=== PATIENT | female | born 1940 | race Caucasian/White ===

== ENCOUNTER 2022-03-28 14:15 | Observation (INO) | payer MEDICARE, BC, SELFPAY ==
[2022-03-28 14:37] VITALS: O2SAT 97
[2022-03-28 15:00] VITALS: BP 132/76; PULSE 88; RESP 18; TEMP 36.3; O2SAT 96; O2SAT 97
[2022-03-28 15:29] VITALS: BP 135/72; PULSE 84; RESP 18; TEMP 36.8; O2SAT 97
--- NOTE | 2022-03-28 15:46 | PC.NURSE ---
Pt arrived via stretcher w/3 EMS staff members at 1415, hospital to hospital transfer. Initial assessment completed by myself. VS wnl. Pt eval by Dr. Altamirano. Pt placed on a regular diet. Report to Paty Zuluaga RN for evening shift.
[2022-03-28 18:41] LABS: HCO3 VBG 29 mmol/L (21-28); Lactate* 3.8 mmol/L (0.5-1.9); PCO2 VBG 45 mmHG (40-50); PO2 VBG 28.2 mmHG (25-47); pH VBG 7.414 (7.32-7.43)
[2022-03-28 18:43] LABS: Hematocrit 38.8 % (33.0-51.0); Hemoglobin* 12.7 gm/dL (12.0-16.0); Immature Granulocytes Abs Auto 0.01 K/uL (0.00-0.30); Lymphocytes Percent Auto 12.4 % (20-44); Mean Corpuscular HGB Conc 33 gm/dL (32-36); Mean Corpuscular Hemoglobin 29 pg (26-34); Mean Corpuscular Volume 89 fL (80-100); Monocytes Percent Auto 1.6 % (0.0-11.0); Neutrophils Percent Auto 85.8 % (42.0-72.0); Platelet Count* 186 K/uL (140-440); RDW Coefficient of Variation % 12.8 % (11.5-15.5); Red Blood Count 4.34 m/uL (4.00-5.20); White Blood Count* 5.07 K/uL (4.50-11.00)
[2022-03-28 18:44] LABS: Slide Review Reflex No
[2022-03-28 18:59] LABS: Chloride* 97 mmol/L (96-114); Potassium* 4.2 mmol/L (3.6-5.1); Sodium* 135 mmol/L (135-149)
[2022-03-28 19:00] VITALS: BP 127/66; PULSE 95; RESP 18; TEMP 37; O2SAT 93
[2022-03-28 19:02] LABS: Carbon Dioxide* 27 mmol/L (20-32); Creatinine* 0.8 mg/dL (0.5-1.5); Est. Creatinine Clearance* 44.51; Estimated Glomerular Filt Rate 74 ml/min
[2022-03-28 19:03] LABS: Blood Urea Nitrogen* 18 mg/dL (7-30); Calcium* 9.6 mg/dL (8.4-10.6); Glucose* 176 mg/dL (60-115)
[2022-03-28 19:12] LABS: NT Pro B Type NatriureticPept* 5480 PG/mL (0-450)
[2022-03-28 19:15] LABS: Troponin I* 0.03 ng/mL (0.01-0.04)
[2022-03-28 19:19] LABS: Procalcitonin* 0.07 ng/mL (<0.50)
--- NOTE | 2022-03-28 22:50 | PM.IMHP1 ---
Hospitalist- H&P: HPI History of Present Illness Date Seen: 04/06/22 Chief complaint: direct admit Narrative: Belinda Yost is a 82 year old female who presented as a direct admission from [place] ED for evaluation of SOB. The patient has been in cabin with family and became SOB yesterday. Today she had cough, sob and thus presented to outside ED. She status she was having URI symptoms/sinus symptoms about 1 week ago. no formal hx of COPD or asthma. In the ED the patient was originally hypoxic and noted to have oxygen saturation of 76%. Workup included: EKG showed sinus tachcyardia. Trop WNL. BNP 309 Influenza/Covid negative vBG pH 7.4, PCO2 42, Bicarb [address] PE Study negative for PE, bilateral groundglass opacities, Bronchiectasis CXR bilateral pleural effusions She was given ceftriaxone/azithromycin Duonebs 125 mg IV solumedrol 20 mg IV lasix. She currently denies sob, chest pain, cough at feels at baseline state. Review of Systems Status of ROS: Reports: 10 or more systems reviewed and unremarkable except as noted in History and below [facility] Medical History Acute respiratory failure with hypoxia Surgical History Status post appendectomy (09/12/09) Status post hysterectomy Status post lumbar laminectomy Status post tonsillectomy and adenoidectomy (09/12/09) Social History Smoking Status: Never smoker Meds Home Medications and Allergies Allergies Allergy/AdvReac Type Severity Reaction Status Date / Time No Known Drug Allergies Allergy Verified 04/04/22 12:51 Exam Narrative: Exam Narrative: Gen: No acute distress HEENT: NCAT EOMI MMM Neck: Supple CV: RRR s1 s2 LCTAB Abd: Soft, nt, nd Neuro AOX3 CN intact MSK: age appropriate muscle mass Ext: No peripheral edema Const: Vital Signs, click to edit/add: Vital Signs - 24 hr 03/28/22 14:37 03/28/22 15:29 03/28/22 15:29 Temperature 98.2 F Pulse Rate [Left A pical] 84 Respiratory Rate 18 Blood Pressure [Ri ght Arm] 135/72 Pulse Oximetry 97 97 97 Oxygen Delivery Me thod Room Air Room Air 03/28/22 15:00 03/28/22 15:00 03/28/22 15:00 Temperature 97.4 F L Pulse Rate [Left A pical] 88 88 Respiratory Rate 18 Blood Pressure [Ri ght Arm] 132/76 Pulse Oximetry 97 96 Oxygen Delivery Me thod Room Air Hospitalist - H&P: Result Labs Labs: Short CBC 03/28/22 Range/Units 18:35 WBC 5.07 (4.50-11.00) K/uL Hgb 12.7 (12.0-16.0) gm/dL Hct 38.8 (33.0-51.0) % Plt Count 186 (140-440) K/uL BMP 03/28/22 18:35 Sodium 135 Potassium 4.2 Chloride 97 Carbon Dioxide 27 BUN 18 Creatinine 0.8 Glucose 176 H Calcium 9.6 Cardiac Enzymes 03/28/22 Range/Units 18:35 Troponin I 0.03 (0.01-0.04) ng/mL Assessment and Plan Assessment and plan (1) Pneumonia: Status: Acute Plan Assessment: Belinda Yost is a 82 year old female who presented as a direct admission from [place] ED for evaluation of SOB. The patient has been in cabin with family and became SOB yesterday. Today she had cough, sob and thus presented to outside ED. no formal hx of COPD or asthma. In the ED the patient was originally hypoxic and noted to have oxygen saturation of 76%. Workup included: EKG showed sinus tachcyardia. Trop WNL. BNP 309 Influenza/Covid negative vBG pH 7.4, PCO2 42, Bicarb [address] PE Study negative for PE, bilateral groundglass opacities, Bronchiectasis CXR bilateral pleural effusions She was given ceftriaxone/azithromycin Duonebs 125 mg IV solumedrol 20 mg IV lasix. She currently denies sob, chest pain, cough at feels at baseline state. 1. Bronchiectasis; suspected PNA 2. Suspected mild CHF exacerbation; baseline EF unknown 3. Former smoker (quit when she was in her 20s) 4. Acute hypoxia; resolved; currently on room air and hemodynamically stable Plan -admit to obs -ceftriaxone and doxy -prn nebs -PO lasix tomorrow; appears euvolemic on exam -hold off on additional steroids -Echo -currently hemodynamically stable on room air -follow electrolytes -outpatient PFTs Code-Full DVT ppx-ambulate; low risk Dispo-home 1-2 days
[2022-03-28 22:51] LABS: Lactate* 1.5 mmol/L (0.5-1.9)
[2022-03-28 23:00] VITALS: RESP 14; O2SAT 93; O2SAT 98
[2022-03-29] VITALS (7 sets, daily range): BP systolic 124–152; BP diastolic 58–95; PULSE 81–102; RESP 18–22; TEMP 36.6–37.2; O2SAT 91–95
--- NOTE | 2022-03-29 07:12 | P.IMPN_ITS ---
Progress Note: A&P Assessment and plan (1) Acute respiratory failure with hypoxia: Problem details: Hypoxic on arrival to [place], [place] emergency room. CT Scan from outside hospital 03/28: Exam CT ANGIO CHEST CLINICAL HISTORY: hypoxia, diffuse wheezing, r/o PE; COMPARISON: None. TECHNIQUE: Contiguous images were obtained from the thoracic inlet to the upper abdomen following administration of 100 mL of Omnipaque 350, using the pulmonary embolism protocol. Arterial MIP images were obtained and evaluated. FINDINGS: The pulmonary arteries are well opacified with contrast without central pulmonary embolism. Scattered bilateral groundglass opacifications. The changes involving the bilateral lungs scattered areas of bronchiectasis are also noted. There is no pericardial or pleural effusion. The heart is normal in size. The aortic arch and great vessels are unremarkable. There is no mediastinal, hilar or axillary lymphadenopathy. The visualized bony structures are intact without lesion. Punctate calcifications associated with splenic parenchyma. Limited visu alization of the upper abdominal organs is within normal limits. IMPRESSION: 1. No pulmonary embolism. 2. Scattered bilateral groundglass opacifications. Cystic areas of pulmonary parenchymal change. Bronchiectasis is also noted. Groundglass opacifications are a nonspecific finding and encompasses a wide range of etiologies which includes infection, chronic interstitial disease and acute alveolar disease. Electronically Signed: Yung Hill MD 03/28/2022 6:39 AM Status: Acute Assessment and Plan: - Continue prn supplemental oxygen - source is likely multifactorial: Possible history of COPD, CHF, community- acquired pneumonia vs chronic interstitial lung disease - continue treatment with ceftriaxone and azithromycin, prednisone, CHF medications per below (2) Pneumonia: Status: Acute (3) Decreased cardiac ejection fraction: Problem details: TTE completed 03/29 Final Impressions: 1. Normal LV size, mildly increased wall thickness, moderately reduced global systolic function with an estimated EF of 35 - 40%. 2. Abnormal septal motion consistent with left bundle branch block. 3. Mildly enlarged left atrium. 4. There is moderate global left ventricular hypokinesis. 5. The mitral valve is normal, mild mitral regurgitation. Status: Acute Assessment and Plan: - patient amenable to medical treatment - will initiate low-dose Rodger inhibitor, beta-trung, Lasix. Will require close outpatient follow-up with PCP (Dr. Fermin) (4) Wheezing: Status: Acute Assessment and Plan: - had improved upon arrival to our hospital yesterday, returned today. Continue steroids as noted above Plan - per above - ambulation and SCDs for prophylaxis - patient updated at bedside, granddaughter Grace (RN) updated by phone Subjective Date Seen: 03/29/22 Interval history: No acute events overnight. Belinda does note return of wheezing and dry cough this morning. She has no chest pain or other concerns for me today. TTE completed 03/28 Final Impressions: 1. Normal LV size, mildly increased wall thickness, moderately reduced global systolic function with an estimated EF of 35 - 40%. 2. Abnormal septal motion consistent with left bundle branch block. 3. Mildly enlarged left atrium. 4. There is moderate global left ventricular hypokinesis. 5. The mitral valve is normal, mild mitral regurgitation. Exam Narrative: Exam Narrative: GEN: Alert and oriented, sitting comfortably in bed and speaking in full sentences, nontoxic in appearance HEENT: Normal external ears, EOMIs bilaterally, no scleral icterus CV: RRR, No concerning murmurs, rubs, or gallops R: Mild wheezing, apices > bases. Fine crackles bilateral bases, air movement adequate Ext: wwp, no concerning edema Skin: No concerning skin lesions or rashes on exposed skin Neuro: Nonfocal Psych: Appropriate Const: Vital Signs, click to edit/add: Vital Signs - 24 hr 03/28/22 14:37 03/28/22 15:29 03/28/22 15:29 Temperature 98.2 F Pulse Rate [Left A pical] 84 Respiratory Rate 18 Blood Pressure [Ri ght Arm] 135/72 Pulse Oximetry 97 97 97 Oxygen Delivery Nv thod Room Air Room Air 03/28/22 15:00 03/28/22 15:00 03/28/22 15:00 Temperature 97.4 F L Pulse Rate [Left A pical] 88 88 Respiratory Rate 18 Blood Pressure [Ri ght Arm] 132/76 Pulse Oximetry 97 96 Oxygen Delivery Nv thod Room Air 03/28/22 19:00 03/28/22 23:00 03/28/22 23:00 Temperature 98.6 F Pulse Rate [Left A pical] 95 Respiratory Rate 18 14 Blood Pressure [Ri ght Arm] 127/66 Pulse Oximetry 93 93 98 [facility] 03/29/22 03:00 Temperature 99 F Pulse Rate [Left A pical] 102 H Respiratory Rate 22 Blood Pressure [Ri ght Arm] 132/75 Pulse Oximetry 93 Oxygen Delivery Me thod Room Air Labs Labs: Laboratory Results - last 24 hr 03/28/22 03/28/22 03/28/22 18:35 18:35 18:35 WBC 5.07 RBC 4.34 Hgb 12.7 Hct 38.8 MCV 89 MCH 29 MCHC 33 RDW Coeff of Davy 12.8 Plt Count 186 Neut % (Auto) 85.8 H Lymph % (Auto) 12.4 L [place] % (Auto) 1.6 Eos % (Auto) 0.0 Baso % (Auto) 0.0 Neut # (Auto) 4.40 Lymph # (Auto) 0.60 L [place] # (Auto) 0.10 Eos # (Auto) 0.00 Baso # (Auto) 0.00 Abs Immat Gran (auto) 0.01 VBG pH 7.414 VBG pCO2 45 VBG pO2 28.2 VBG HCO3 29 H Sodium 135 Potassium 4.2 Chloride 97 Carbon Dioxide 27 BUN 18 Creatinine 0.8 Estimated Creat Clear 44.51 Estimated GFR 74 Glucose 176 H Lactate 3.8 H Calcium 9.6 Troponin I 0.03 NT-Pro-B Natriuret Pep 5480 H Procalcitonin 0.07 03/28/22 22:48 WBC RBC Hgb Hct MCV MCH MCHC RDW Coeff of Davy Plt Count Neut % (Auto) Lymph % (Auto) [place] % (Auto) Eos % (Auto) Baso % (Auto) Neut # (Auto) Lymph # (Auto) [place] # (Auto) Eos # (Auto) Baso # (Auto) Abs Immat Gran (auto) VBG pH VBG pCO2 VBG pO2 VBG HCO3 Sodium Potassium Chloride Carbon Dioxide BUN Creatinine Estimated Creat Clear Estimated GFR Glucose Lactate 1.5 Calcium Troponin I NT-Pro-B Natriuret Pep Procalcitonin
[2022-03-29 07:21] LABS: Basophils Absolute Auto 0.01 K/uL (0.00-0.30); Basophils Percent Auto 0.1 % (0.0-3.0); Eosinophils Absolute Auto 0.02 K/uL (0.00-0.50); Eosinophils Percent Auto 0.3 % (0.0-7.0); Hematocrit 35.2 % (33.0-51.0); Hemoglobin* 11.6 gm/dL (12.0-16.0); Immature Granulocytes Abs Auto 0.01 K/uL (0.00-0.30); Mean Corpuscular HGB Conc 33 gm/dL (32-36); Mean Corpuscular Hemoglobin 29 pg (26-34); Mean Corpuscular Volume 88 fL (80-100); Monocytes Percent Auto 6.6 % (0.0-11.0); Neutrophils Percent Auto 73.9 % (42.0-72.0); Platelet Count* 171 K/uL (140-440); RDW Coefficient of Variation % 12.8 % (11.5-15.5); Red Blood Count 3.98 m/uL (4.00-5.20); White Blood Count* 7.86 K/uL (4.50-11.00)
[2022-03-29 07:30] LABS: Chloride* 98 mmol/L (96-114); Potassium* 3.9 mmol/L (3.6-5.1); Sodium* 133 mmol/L (135-149)
[2022-03-29 07:32] LABS: Slide Review Reflex No
[2022-03-29 07:33] LABS: Blood Urea Nitrogen* 18 mg/dL (7-30); Carbon Dioxide* 27 mmol/L (20-32); Creatinine* 0.7 mg/dL (0.5-1.5); Est. Creatinine Clearance* 44.51; Estimated Glomerular Filt Rate 87 ml/min
[2022-03-29 07:34] LABS: Glucose* 97 mg/dL (60-115); Magnesium* 1.8 mg/dL (1.5-2.6)
--- NOTE | 2022-03-29 07:49 | PC.NURSE ---
Pt pleasant and cooperative, VSS. LSCTA. Pt declines any pain. Up I in room.
[2022-03-29] MEDS: cefTRIAXone 1 GM in 0.9 % SODIUM CHLORIDE Mini-bag 100 ML IVPB (08:18)
[2022-03-29] MEDS: FUROSEMIDE 40 MG TABLET 20 MG PO (08:20)
[2022-03-29] MEDS: DOXYCYCLINE HYCLATE 100 MG CAPSULE PO ×2 (08:20→21:04)
[2022-03-29] MEDS: 0.9 % SODIUM CHLORIDE 250 ml IV (08:48)
[2022-03-29] MEDS: METOPROLOL SUCCINATE (XL) 25 MG TAB PO (08:52)
[2022-03-29] MEDS: lisinopriL 5 MG TABLET 2.5 MG PO (08:52)
[2022-03-29] MEDS: ACETAMINOPHEN 500 MG TABLET PO ×2 (08:52→18:37)
[2022-03-29] MEDS: predniSONE 20 MG TABLET 60 MG PO (08:52)
[2022-03-29 09:16] LABS: Appearance Urine Clear (Clear); Bilirubin Urine Negative (Negative); Blood Urine Negative (Negative); Color Urine Yellow (Yellow); Glucose Urine Negative (Negative); Ketones Urine Negative (Negative); Leukocyte Esterase Urine Negative (Negative); Nitrite Urine Negative (Negative); Protein Urine Negative (Negative); Specific Gravity Urine 1.015 (1.000-1.030); Urobilinogen Urine 0.2 (0.2-1.0)
[2022-03-29 17:44] LABS: NT Pro B Type NatriureticPept* 3420 PG/mL (0-450)
[2022-03-30 03:00] VITALS: BP 140/92; PULSE 81; RESP 18; TEMP 36.6; O2SAT 94
[2022-03-30] MEDS: guaiFENesin 100 MG/ML CUP PO (03:17)
--- NOTE | 2022-03-30 06:04 | PC.NURSE ---
Pt pleasant and cooperative. VSS this shift. O2 sats dropped when pt fell asleep. O2 started @ .5L to maintain her sats above 88-90. After 20min O2 increased to 1.5L to maintain sats above 88. Pt up I . Started with a cough this am. Lung sound with expiratory wheezes which were not there at the started of my shift. guaifenesin 200mg Liquid given. Pt resting at this time with head of bed elevated.
[2022-03-30 07:00] VITALS: BP 157/97; PULSE 69; PULSE 94; RESP 18; TEMP 36.6; O2SAT 94
[2022-03-30 07:14] LABS: Basophils Percent Auto 0.1 % (0.0-3.0); Eosinophils Percent Auto 0.2 % (0.0-7.0); Hematocrit 38.6 % (33.0-51.0); Hemoglobin* 12.8 gm/dL (12.0-16.0); Immature Granulocytes Abs Auto 0.08 K/uL (0.00-0.30); Lymphocytes Percent Auto 14.6 % (20-44); Mean Corpuscular HGB Conc 33 gm/dL (32-36); Mean Corpuscular Hemoglobin 29 pg (26-34); Mean Corpuscular Volume 89 fL (80-100); Neutrophils Percent Auto 78.5 % (42.0-72.0); Platelet Count* 184 K/uL (140-440); RDW Coefficient of Variation % 12.8 % (11.5-15.5); Red Blood Count 4.36 m/uL (4.00-5.20); White Blood Count* 12.43 K/uL (4.50-11.00)
[2022-03-30 07:16] LABS: Slide Review Reflex No
[2022-03-30 07:33] LABS: Chloride* 98 mmol/L (96-114); Sodium* 132 mmol/L (135-149)
[2022-03-30 07:34] LABS: Potassium* 3.4 mmol/L (3.6-5.1)
[2022-03-30 07:36] LABS: Blood Urea Nitrogen* 18 mg/dL (7-30); Carbon Dioxide* 26 mmol/L (20-32); Creatinine* 0.6 mg/dL (0.5-1.5); Est. Creatinine Clearance* 44.51; Estimated Glomerular Filt Rate 90 ml/min
[2022-03-30 07:37] LABS: Calcium* 8.9 mg/dL (8.4-10.6); Glucose* 98 mg/dL (60-115)
[2022-03-30] MEDS: predniSONE 20 MG TABLET 60 MG PO (08:42)
[2022-03-30] MEDS: DOXYCYCLINE HYCLATE 100 MG CAPSULE PO ×2 (08:44→20:13)
[2022-03-30] MEDS: lisinopriL 5 MG TABLET 2.5 MG PO (08:44)
[2022-03-30] MEDS: METOPROLOL SUCCINATE (XL) 25 MG TAB PO (08:45)
[2022-03-30] MEDS: FUROSEMIDE 40 MG TABLET 20 MG PO (08:45)
[2022-03-30] MEDS: cefTRIAXone 1 GM in 0.9 % SODIUM CHLORIDE Mini-bag 100 ML IVPB (08:48)
[2022-03-30] MEDS: 0.9 % SODIUM CHLORIDE 250 ml IV (08:50)
[2022-03-30] MEDS: IPRAT-ALBUT 0.5-2.5 MG/3 ML NEB 1 NEB IH ×4 (10:20→20:13)
[2022-03-30 11:00] VITALS: BP 124/91; PULSE 77; RESP 18; TEMP 36.1; O2SAT 97
[2022-03-30 15:00] VITALS: BP 125/65; PULSE 77; PULSE 88; RESP 18; TEMP 36.1; O2SAT 94; O2SAT 96
--- NOTE | 2022-03-30 16:08 | P.IMPN_ITS ---
Progress Note: A&P Assessment and plan (1) Acute respiratory failure with hypoxia: Problem details: Hypoxic on arrival to [place], [place] emergency room. CT Scan from outside hospital 03/28: Exam CT ANGIO CHEST CLINICAL HISTORY: hypoxia, diffuse wheezing, r/o PE; COMPARISON: None. TECHNIQUE: Contiguous images were obtained from the thoracic inlet to the upper abdomen following administration of 100 mL of Omnipaque 350, using the pulmonary embolism protocol. Arterial MIP images were obtained and evaluated. FINDINGS: The pulmonary arteries are well opacified with contrast without central pulmonary embolism. Scattered bilateral groundglass opacifications. The changes involving the bilateral lungs scattered areas of bronchiectasis are also noted. There is no pericardial or pleural effusion. The heart is normal in size. The aortic arch and great vessels are unremarkable. There is no mediastinal, hilar or axillary lymphadenopathy. The visualized bony structures are intact without lesion. Punctate calcifications associated with splenic parenchyma. Limited visu alization of the upper abdominal organs is within normal limits. IMPRESSION: 1. No pulmonary embolism. 2. Scattered bilateral groundglass opacifications. Cystic areas of pulmonary parenchymal change. Bronchiectasis is also noted. Groundglass opacifications are a nonspecific finding and encompasses a wide range of etiologies which includes infection, chronic interstitial disease and acute alveolar disease. Electronically Signed: Yung Hill MD 03/28/2022 6:39 AM Status: Acute (2) Pneumonia: Status: Acute (3) Decreased cardiac ejection fraction: Problem details: TTE completed 03/29 Final Impressions: 1. Normal LV size, mildly increased wall thickness, moderately reduced global systolic function with an estimated EF of 35 - 40%. 2. Abnormal septal motion consistent with left bundle branch block. 3. Mildly enlarged left atrium. 4. There is moderate global left ventricular hypokinesis. 5. The mitral valve is normal, mild mitral regurgitation. 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 Reviewed impression with patient. 2. Answered patient's questions are satisfaction. 3. Continue with diuresis efforts initiated yesterday. 4. Potassium supplementation and follow potassium levels. 5. Fluid restriction and follow sodium levels. 6. Add bronchodilator with scheduled DuoNeb and as needed albuterol. 7. Decrease dose of steroid to 30 mg daily. 8. I called and spoke with her granddaughter, Grace Lagunas, at [phone], per patient request. 9. Respiratory therapy will instructed patient on how to appropriately use the Aerobika device. 10. In outpatient setting long-acting beta agonist and steroid combination medication will need to be instituted. 11. Patient and granddaughter are agreeable to above stated plans and recommendations. Subjective Time Seen by Provider: 08:30 Date Seen: 03/30/22 Interval history: Hospital day 3. She did relatively well during the day yesterday. In the evening when she tried to lay down she started having coughing paroxysms once again. Was eventually able to sleep with head of bed elevated. She indicates that at home she is normally able to sleep flat. Denies paroxysmal nocturnal dyspnea per se. Denies orthopnea per se. With a coughing paroxysm she states that it is hard for her to catch her breath. Denies dyspnea on exertion. Denies dyspnea at rest. Denies chest heaviness, pressure, tightness, or pain. Denies syncope or near-syncope. Tolerating oral intake. Tolerating activities such as walking about room and in the hallways of the hospital. Generally speaking she feels improved this morning compared to yesterday in the evening. TTE completed 03/28 Final Impressions: 1. Normal LV size, mildly increased wall thickness, moderately reduced global systolic function with an estimated EF of 35 - 40%. 2. Abnormal septal motion consistent with left bundle branch block. 3. Mildly enlarged left atrium. 4. There is moderate global left ventricular hypokinesis. 5. The mitral valve is normal, mild mitral regurgitation. Exam Narrative: Exam Narrative: Appears comfortable when I see her. No acute distress. Alert, oriented to self, place, time, situation. Articulate, cooperative, friendly. Mood and affect are congruent. While sitting upright she does not have JVD or hepatojugular reflux. No carotid bruits. Lungs with scattered rhonchi without rales or wheezing. Heart tones with regular rhythm, normal S1-S2, without murmur, gallop, or rub. Abdomen with active bowel sounds, soft, nontender. Extremities without edema. Independent transfer, station, and gait. No focal motor neurologic deficits. Const: Vital Signs, click to edit/add: Vital Signs - 24 hr 03/29/22 19:00 03/29/22 23:00 03/29/22 23:00 Temperature 97.8 F Pulse Rate [Left A pical] 81 87 Respiratory Rate 20 18 Blood Pressure [Ri ght Arm] 148/95 H 152/93 H Pulse Oximetry 95 91 91 Oxygen Delivery Me thod Room Air Room Air Oxygen Flow Rate 0 03/30/22 03:00 03/30/22 07:00 03/30/22 07:00 Temperature 97.8 F Pulse Rate [Left A pical] 81 69 Respiratory Rate 18 18 Blood Pressure [Ri ght Arm] 140/92 H Pulse Oximetry 94 94 Oxygen Delivery Me thod Nasal Cannula Oxygen Flow Rate 1.5 03/30/22 07:00 03/30/22 11:00 03/30/22 15:00 Temperature 97.9 F 97.0 F L Pulse Rate [Left A pical] 94 77 Respiratory Rate 18 18 Blood Pressure [Ri ght Arm] 157/97 H 124/91 H Pulse Oximetry 94 97 94 Oxygen Delivery Me thod Room Air Room Air Oxygen Flow Rate 03/30/22 15:00 03/30/22 15:00 Temperature 97.0 F L Pulse Rate [Left A pical] 77 88 Respiratory Rate 18 18 Blood Pressure [Ri ght Arm] 125/65 Pulse Oximetry 96 Oxygen Delivery Me thod Room Air Oxygen Flow Rate Documenting provider has reviewed patient's vital signs: yes Labs Labs: Laboratory Results - last 24 hr 03/29/22 03/30/22 03/30/22 06:31 06:34 06:34 WBC 12.43 H RBC 4.36 Hgb 12.8 Hct 38.6 MCV 89 MCH 29 MCHC 33 RDW Coeff of Davy 12.8 Plt Count 184 Neut % (Auto) 78.5 H Lymph % (Auto) 14.6 L [place] % (Auto) 6.0 Eos % (Auto) 0.2 Baso % (Auto) 0.1 Neut # (Auto) 9.80 H Lymph # (Auto) 1.80 [place] # (Auto) 0.70 Eos # (Auto) 0.00 Baso # (Auto) 0.00 Abs Immat Gran (auto) 0.08 Sodium 132 L Potassium 3.4 L Chloride 98 Carbon Dioxide 26 BUN 18 Creatinine 0.6 Estimated Creat Clear 44.51 Estimated GFR 90 Glucose 98 Calcium 8.9 NT-Pro-B Natriuret Pep 3420 H
[2022-03-30] MEDS: POTASSIUM BICARB 25 MEQ EFFERVESCENT TAB PO ×2 (16:35→18:24)
--- NOTE | 2022-03-30 18:51 | PC.NURSE ---
Pt. alert and orientedx4. Pt. pleasant and cooperative. VSS this shift. Pt. on RA and maintains 94-96% O2. Pt. has non productive cough this am. Lung sound with expiratory wheezes this AM and improved w/scheduled Duo Neb. Pt. got an Aerobika from [facility] and encouraged to use. Pt. tolerated aerobika and duoneb administration. Lung sounds are better this afternoon and pt. is not coughing as much. Pt's family at bedside for most of the day visiting, and Nurse updated family on pt's. current situation so they had a better understanding.
[2022-03-30 19:00] VITALS: BP 119/84; PULSE 85; RESP 18; TEMP 36.5; O2SAT 97
[2022-03-30 22:59] VITALS: BP 141/86; PULSE 80; RESP 18; TEMP 36.8; O2SAT 95
[2022-03-31 03:00] VITALS: PULSE 79; RESP 16; O2SAT 94
--- NOTE | 2022-03-31 05:05 | PC.NURSE ---
PATIENT UP IND IN ROOM, DECLINING PAIN, ON RA THROUGHOUT NIGHT WITH SATS 90% AND GREATER, USING AROBKA INDEPENDTLY.
[2022-03-31 07:00] VITALS: BP 148/81; PULSE 78; RESP 18; TEMP 36.4; O2SAT 98
[2022-03-31 07:16] LABS: Potassium* 4.1 mmol/L (3.6-5.1); Sodium* 133 mmol/L (135-149)
[2022-03-31 07:28] LABS: NT Pro B Type NatriureticPept* 5030 PG/mL (0-450)
[2022-03-31] MEDS: FUROSEMIDE 40 MG TABLET 20 MG PO (09:07)
[2022-03-31] MEDS: DOXYCYCLINE HYCLATE 100 MG CAPSULE PO ×2 (09:08→20:40)
[2022-03-31] MEDS: lisinopriL 5 MG TABLET 2.5 MG PO (09:08)
[2022-03-31] MEDS: METOPROLOL SUCCINATE (XL) 25 MG TAB PO (09:08)
[2022-03-31] MEDS: predniSONE 20 MG TABLET 30 MG PO (09:09)
[2022-03-31] MEDS: cefTRIAXone 1 GM in 0.9 % SODIUM CHLORIDE Mini-bag 100 ML IVPB (09:10)
[2022-03-31] MEDS: 0.9 % SODIUM CHLORIDE 250 ml IV (09:10)
[2022-03-31] MEDS: IPRAT-ALBUT 0.5-2.5 MG/3 ML NEB 1 NEB IH ×4 (10:00→22:06)
[2022-03-31] MEDS: SODIUM CHLORIDE 0.9 % (FLUSH) 10 ML SYRINGE 5 ML IVF (10:01)
[2022-03-31 11:00] VITALS: BP 114/81; PULSE 77; RESP 18; TEMP 36.5; O2SAT 97
--- NOTE | 2022-03-31 15:25 | P.IMPN_ITS ---
Progress Note: A&P Assessment and plan (1) Acute respiratory failure with hypoxia: Problem details: Hypoxic on arrival to [place], [place] emergency room. CT Scan from outside hospital 03/28: Exam CT ANGIO CHEST CLINICAL HISTORY: hypoxia, diffuse wheezing, r/o PE; COMPARISON: None. TECHNIQUE: Contiguous images were obtained from the thoracic inlet to the upper abdomen following administration of 100 mL of Omnipaque 350, using the pulmonary embolism protocol. Arterial MIP images were obtained and evaluated. FINDINGS: The pulmonary arteries are well opacified with contrast without central pulmonary embolism. Scattered bilateral groundglass opacifications. The changes involving the bilateral lungs scattered areas of bronchiectasis are also noted. There is no pericardial or pleural effusion. The heart is normal in size. The aortic arch and great vessels are unremarkable. There is no mediastinal, hilar or axillary lymphadenopathy. The visualized bony structures are intact without lesion. Punctate calcifications associated with splenic parenchyma. Limited visu alization of the upper abdominal organs is within normal limits. IMPRESSION: 1. No pulmonary embolism. 2. Scattered bilateral groundglass opacifications. Cystic areas of pulmonary parenchymal change. Bronchiectasis is also noted. Groundglass opacifications are a nonspecific finding and encompasses a wide range of etiologies which includes infection, chronic interstitial disease and acute alveolar disease. Electronically Signed: Yung Hill MD 03/28/2022 6:39 AM Status: Acute Assessment and Plan: 1. On room air with oxygen saturations much improved. 2. Will stop continuous oxygen saturation monitoring. (2) Pneumonia: Status: Acute Assessment and Plan: 1. Still on ceftriaxone and doxycycline. 2. Will switch to all oral antibiotics tomorrow if still doing well. (3) Decreased cardiac ejection fraction: Problem details: TTE completed 03/29 Final Impressions: 1. Normal LV size, mildly increased wall thickness, moderately reduced global systolic function with an estimated EF of 35 - 40%. 2. Abnormal septal motion consistent with left bundle branch block. 3. Mildly enlarged left atrium. 4. There is moderate global left ventricular hypokinesis. 5. The mitral valve is normal, mild mitral regurgitation. Status: Acute Assessment and Plan: 1. Continue with current regimen as presently instituted including diuresis with furosemide. (4) Wheezing: Status: Acute Assessment and Plan: 1. Much improved on bronchodilator therapy. 2. Will need bronchodilator therapy at time of discharge. (5) Chronic obstructive pulmonary disease: Status: Acute (6) Emphysema lung: Status: Acute (7) Bronchiectasis with acute exacerbation: Problem details: Benefitting from use of the oscillating device, Aerobika. 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 Continue with low-dose beta trung, STEFANY-inhibitor, and diuresis. Plan 1. Reviewed my impression with patient. 2. Answered patient's questions are satisfaction. 3. If patient does well overnight then consider discharge tomorrow. 4. Patient agreeable with above stated plans and recommendations. Time Spent With Patient Total time spent: 30 minutes Subjective Time Seen by Provider: 11:00 Date Seen: 03/31/22 Interval history: Hospital day 4. She felt better yesterday after starting the nebulized bronchodilator therapy. Slept well throughout the night. Awakened this morning with what she described as a noise in her chest and a cough. After she sat up cleared her throat it seemed to improve. Denies paroxysmal nocturnal dyspnea per se. Denies orthopnea per se. Substantially decreased the coughing paroxysms she was experiencing previously. Denies dyspnea on exertion. Denies dyspnea at rest. Denies chest heaviness, pressure, tightness, or pain. Denies syncope or near- syncope. Tolerating oral intake. Tolerating activities such as walking about room and in the hallways of the hospital. TTE completed 03/28 Final Impressions: 1. Normal LV size, mildly increased wall thickness, moderately reduced global systolic function with an estimated EF of 35 - 40%. 2. Abnormal septal motion consistent with left bundle branch block. 3. Mildly enlarged left atrium. 4. There is moderate global left ventricular hypokinesis. 5. The mitral valve is normal, mild mitral regurgitation. Exam Narrative: Exam Narrative: Weight this morning is 67.6 kg. Admission weight was 68.6 kg. No acute distress. Appears comfortable. Alert, oriented to self, place, time, situation. Friendly, cooperative, articulate. Mood and affect are congruent. Sitting upright she does not have JVD or hepatojugular reflux. No carotid bruits. Lungs are for the most part clear to auscultation. Rare intermittent scattered rhonchi. No wheezing or rales. Chest wall excursions are full. Heart tones with regular rhythm, normal S1-S2. Abdomen with active bowel sounds, soft, nontender. Extremities with no edema today. Skin is warm, dry, intact. No petechiae, rashes, jaundice, or cyanosis. No focal motor neurologic deficits. Independent transfer, station, and gait. Const: Vital Signs, click to edit/add: Vital Signs - 24 hr 03/30/22 19:00 03/30/22 22:59 03/30/22 22:59 Temperature 97.7 F Pulse Rate [Left A pical] 85 Respiratory Rate 18 18 Blood Pressure [Ri ght Arm] 119/84 Pulse Oximetry 97 95 Oxygen Delivery Me thod Room Air 03/30/22 22:59 03/31/22 03:00 03/31/22 07:00 Temperature 98.3 F Pulse Rate [Left A pical] 80 79 Respiratory Rate 18 16 Blood Pressure [Ri ght Arm] 141/86 H Pulse Oximetry 95 94 98 Oxygen Delivery Me thod Room Air Room Air 03/31/22 07:00 03/31/22 11:00 Temperature 97.5 F L 97.7 F Pulse Rate [Left A pical] 78 77 Respiratory Rate 18 18 Blood Pressure [Ri ght Arm] 148/81 H 114/81 Pulse Oximetry 98 97 Oxygen Delivery Me thod Room Air Room Air Documenting provider has reviewed patient's vital signs: yes Labs Labs: Laboratory Results - last 24 hr 03/31/22 06:27 Sodium 133 L Potassium 4.1 NT-Pro-B Natriuret Pep 5030 H
[2022-03-31 16:00] VITALS: BP 118/61; PULSE 80; RESP 18; TEMP 36.7; O2SAT 94
--- NOTE | 2022-03-31 16:21 | PC.NURSE ---
Pt up independent in room. RA sats holding in mid 90's. Denies chest pain, SOB, nausea. Many questions from pt and daughter answered throughout the shift.
[2022-03-31 19:00] VITALS: BP 123/72; PULSE 85; RESP 18; TEMP 36.6; O2SAT 98
--- NOTE | 2022-03-31 21:16 | PC.NURSE ---
Shift note : The pt has been pleasant and cooperative. She was ambulating in the haile independently; denied any short of breath and chest pain. The pt reported less cough this shift with some sputum; she doesn't know the color of the sputum; she has been swallowing it. Spo2 has been in the 90s in RA. The pt appeared without any distress throughout the shift.
[2022-03-31 23:00] VITALS: BP 142/89; PULSE 78; RESP 18; TEMP 36.6; O2SAT 98
[2022-04-01 04:00] VITALS: PULSE 66; RESP 18; O2SAT 98
--- NOTE | 2022-04-01 06:22 | PC.NURSE ---
SHift note: No c/o SOB overnight, voiding large amounts of urine, lungs mostly clear
[2022-04-01 07:00] VITALS: BP 142/87; PULSE 74; RESP 16; RESP 18; TEMP 36.5; O2SAT 98
[2022-04-01 07:40] LABS: Hemoglobin* 13.2 gm/dL (12.0-16.0); Mean Corpuscular HGB Conc 33 gm/dL (32-36); Mean Corpuscular Hemoglobin 29 pg (26-34); Mean Corpuscular Volume 88 fL (80-100); Platelet Count* 190 K/uL (140-440); Red Blood Count 4.54 m/uL (4.00-5.20); White Blood Count* 6.88 K/uL (4.50-11.00)
[2022-04-01 07:57] LABS: Potassium* 3.7 mmol/L (3.6-5.1); Sodium* 133 mmol/L (135-149)
[2022-04-01 08:00] LABS: Magnesium* 1.9 mg/dL (1.5-2.6)
[2022-04-01 08:13] LABS: Slide Review Reflex No
[2022-04-01] MEDS: IPRAT-ALBUT 0.5-2.5 MG/3 ML NEB 1 NEB IH (08:29)
[2022-04-01] MEDS: predniSONE 20 MG TABLET 30 MG PO (08:32)
[2022-04-01] MEDS: METOPROLOL SUCCINATE (XL) 25 MG TAB PO (08:32)
[2022-04-01] MEDS: lisinopriL 5 MG TABLET 2.5 MG PO (08:32)
[2022-04-01] MEDS: POTASSIUM CHLORIDE 10 MEQ CAPSULE ER 20 MEQ PO (08:32)
[2022-04-01] MEDS: DOXYCYCLINE HYCLATE 100 MG CAPSULE PO (08:32)
[2022-04-01] MEDS: cefTRIAXone 1 GM in 0.9 % SODIUM CHLORIDE Mini-bag 100 ML IVPB (08:33)
[2022-04-01] MEDS: SODIUM CHLORIDE 0.9 % (FLUSH) 10 ML SYRINGE 5 ML IVF (08:33)
[2022-04-01] MEDS: FUROSEMIDE 40 MG TABLET 20 MG PO (08:33)
--- NOTE | 2022-04-01 12:59 | PC.NURSE ---
PATIENT DISCHARGED TO HOME ACCOMPANIED BY DAUGHTER, PATIENT AND DAUGHTER VERBALIZED UNDERSTANDING OF DISCHARGE INFORMATION, EDUCATED PATIENT ON NEW CHF INCLUDING BUT NOT LIMITED TO DIET, WEIGHT MEASUREMENTS, MEDICATIONS, ACTIVITY AND FOLLOW UP. PATIENT AND DTR VERBALIZED UNDERSTANDING OF DISCHARGE INFORMATION, ALSO SPOKE WITH PATIENT REGARDING COPD/EMPHYSEMA, IV REMOVED, ALL BELONGINGS SENT WITH PATIENT, PATIENT LEFT AROUND 1210, UP INDEPENDENT IN ROOM, TOLERATING REG DIET, DECLINING PAIN.
--- NOTE | 2022-04-07 12:05 | P.DS_ITS ---
DS: Providers Provider Time Seen by Provider: 08:00 Date Seen: 04/01/22 Date of admission: 03/28/22 14:15 Primary care physician: Fredi Fermin MD Admitting Clinician: Pinky Beltran MD Consults: 03/29/22 08:39 Consult to Respiratory Therapy [CONS] Routine Comment: Reason(s) for RT Consult:: Consult 03/30/22 09:12 Consult to Respiratory Therapy [CONS] Routine Comment: Reason(s) for RT Consult:: Consult New COPD/Asthma Diag Comment: bronciectasis, teach use of Aerobika device with/without neb Attending Physician on discharge: Antonio Brandon MD Date of Discharge: 04/01/22 DS: Diagnosis Discharge Diagnosis (1) Pneumonia: Status: Acute (2) Bronchiectasis with acute exacerbation: Status: Acute Problem details: Benefitting from use of the oscillating device, Aerobika. 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 Normal LV size, mildly increased wall thickness, moderately reduced global systolic function with an estimated EF of 35 - 40%. 2. Abnormal septal motion consistent with left bundle branch block. 3. Mildly enlarged left atrium. 4. There is moderate global left ventricular hypokinesis. 5. The mitral valve is normal, mild mitral regurgitation. (7) Peripheral vascular disease: Status: Acute (8) Hyperlipidemia: Status: Acute DS: Summary Hospital Course Hospital Course: Belinda Yost is a 82 year old female who presented as a direct admission from [place] ED for evaluation of SOB. The patient has been in cabin with family and became SOB yesterday. Today she had cough, sob and thus presented to outside ED. She status she was having URI symptoms/sinus symptoms about 1 week ago. no formal hx of COPD or asthma. In the ED the patient was originally hypoxic and noted to have oxygen saturation of 76%. Workup included: EKG showed sinus tachcyardia. Trop WNL. BNP 309 Influenza/Covid negative vBG pH 7.4, PCO2 42, Bicarb [address] PE Study negative for PE, bilateral groundglass opacities, Bronchiectasis CXR bilateral pleural effusions She was given ceftriaxone/azithromycin Duonebs 125 mg IV solumedrol 20 mg IV lasix. She currently denies sob, chest pain, cough at feels at baseline state. Patient also found to be in heart failure. Treated with diuretics and at excellent response. Weight improved from 69 kilos down to 67.4 kilos. Echocardiogram demonstrates moderate decrease in global systolic function with EF of 35-40%. Eventually able to transition to home going medication regimen which she tolerated well. Follow-up as indicated. Status at Discharge Overall status at discharge: patient is progressing back to baseline Time Spent with Patient Time attestation: Total time spent providing and/or coordinating discharge services: Time spent: Greater than 30 minutes Exam Narrative: Exam Narrative: TTE completed 03/28 Final Impressions: ?1. Normal LV size, mildly increased wall thickness, moderately reduced global systolic function with an estimated EF of 35 - 40%. ?2. Abnormal septal motion consistent with left bundle branch block. ?3. Mildly enlarged left atrium. ?4. There is moderate global left ventricular hypokinesis. ?5. The mitral valve is normal, mild mitral regurgitation. Exam Narrative:?? Exam Narrative: We ight this morning is 67.4 kg.? Admis marlen weight was 68 .6 kg. No acute di stress.? Appears c omfortable.? Alert , oriented to self , place, time, sit uation.? Friendly, cooperative, amadeo culate.? Mood and affect are congrue nt. Sitting uprigh t she does not hav e JVD or hepatojug ular reflux.? No c arotid bruits. Juliette gs are for the mos t part clear to au scultation.? Rare intermittent scatt ered rhonchi.? No wheezing or rales. ? Chest wall excur sions are full. He art tones with reg ular rhythm, juan manuel l S1-S2. Abdomen w ith active bowel s ounds, soft, nonte nder.? Extremities with no edema tod ay.? Skin is warm, dry, intact.? No petechiae, rashes, jaundice, or cyan osis. No focal mot or neurologic defi cits. Independent transfer, station, and gait. Const: Documenting provider has reviewed patient's vital signs: yes Discharge Plan Discharge Disposition: Home, Self-Care Date of Admission: 03/28/22 14:15 Primary Care Provider: Fredi Fermin Condition: Improved Anticipated Discharge Date/Time: 04/01/22 11:30 Discharge Medications: New furosemide 40 mg Tablet 20 mg PO DAILY 30 Days Qty: 60 0RF albuterol sulfate 2.5 mg /3 mL (0.083 %) Solution For Nebulization 2.5 mg NEB Q4H PRN30 Days Qty: 75 0RF lisinopril 5 mg Tablet 2.5 mg PO DAILY 30 Days Qty: 30 0RF cefdinir 300 mg capsule 300 mg PO BID Qty: 10 0RF No Action ipratropium-albuterol 0.5 mg-3 mg(2.5 mg base)/3 mL solution for nebulization 3 ml inhalation QID PRN (Reason: shortness of breath) Qty: 60 3RF metoprolol succinate 25 mg tablet extended release 24 hr 25 mg PO DAILY Qty: 90 3RF potassium chloride 10 mEq capsule, extended release 20 meq PO DAILYWM Qty: 90 3RF furosemide 40 mg tablet 40 mg PO QDAY Qty: 90 3RF Discharge Orders: Discharge Order (Routine); Ordered 04/01/22 Ordered By: Antonio Brandon Patient Education: Metoprolol (By mouth), Lisinopril (By mouth), Furosemide (By mouth), Doxycycline (By mouth), Albuterol (By breathing), Potassium Chloride (By mouth), Guaifenesin (By mouth), Ipratropium/Albuterol (By breathing), Cefdinir (By mouth), Heart Failure (GEN), Emphysema (GEN), COPD (Chronic Obstructive Pulmonary Disease) (GEN), Community Acquired Pneumonia (GEN), Bronchiectasis (GEN), How to Use a Nebulizer (GEN), Low-Sodium Diet (GEN) Activity Level: Activity as Tolerated Discharge Diet: 2 gm Sodium Follow Up Appointments: Fredi Fermin MD [Primary Care Provider] - 04/04/22 12:45 pm ([phone]) Forms: [employer] Info Instructions
== END 2022-04-01 12:10 | disposition home or self-care (01) ==
PROVIDERS: Hospitalist; Internal Medicine; Admitting Provider Family Medicine; PCP Family Medicine; Visit Provider Family Medicine
DX: J18.9 Pneumonia, unspecified organism (principal); J47.1 Bronchiectasis with (acute) exacerbation; J96.01 Acute respiratory failure with hypoxia; J44.9 Chronic obstructive pulmonary disease, unspecified; J84.10 Pulmonary fibrosis, unspecified; I50.40 Unspecified combined systolic (congestive) and diastolic (congestive) heart failure; I73.9 Peripheral vascular disease, unspecified; E78.5 Hyperlipidemia, unspecified; I44.7 Left bundle-branch block, unspecified; I51.7 Cardiomegaly; I34.0 Nonrheumatic mitral (valve) insufficiency; R00.0 Tachycardia, unspecified; Z98.890 Other specified postprocedural states; Z90.89 Acquired absence of other organs; Z87.891 Personal history of nicotine dependence; R91.8 Other nonspecific abnormal finding of lung field; D73.89 Other diseases of spleen; R05.9 Cough, unspecified; I10 Essential (primary) hypertension; R93.1 Abnormal findings on diagnostic imaging of heart and coronary circulation
CPT/HCPCS: 36415; 80048; 81003; 82803; 83605; 83735; 83880; 84132; 84145; 84295; 84484; 85025; 85027; 93306; 94640; 94664; 94761; 96365; 96366; 96375; A9270; G0378; J0696; J7050; J7512

== ENCOUNTER 2022-05-08 15:57 | Outpatient (CLI) | payer MEDICARE, BC, SELFPAY ==
[2022-05-08 15:39] LABS: Chloride* 96 mmol/L (96-114)
[2022-05-08 15:40] LABS: Potassium* 4.4 mmol/L (3.6-5.1)
[2022-05-08 15:42] LABS: Blood Urea Nitrogen* 18 mg/dL (7-30); Cholesterol* 210 mg/dL (90-199); Creatinine* 0.9 mg/dL (0.5-1.5); Estimated Glomerular Filt Rate 64 ml/min
[2022-05-08 15:43] LABS: Calcium* 9.1 mg/dL (8.4-10.6)
[2022-05-08 16:37] LABS: Sodium* 135 mmol/L (135-149)
[2022-05-08 16:40] LABS: Carbon Dioxide* 31 mmol/L (20-32)
[2022-05-08 16:41] LABS: Glucose* 88 mg/dL (60-115); HDL Cholesterol* 63 mg/dL (>=50); LDL Cholesterol Calculated 125 mg/dL (<100); Triglycerides* 110 mg/dL (40-149)
== END 2022-05-08 15:58 | disposition home or self-care (01) ==
PROVIDERS: PCP Family Medicine; Visit Provider Family Medicine
DX: E78.5 Hyperlipidemia, unspecified (principal); R93.1 Abnormal findings on diagnostic imaging of heart and coronary circulation
CPT/HCPCS: 80048; 80061

== ENCOUNTER 2022-07-04 12:39 | Outpatient (CLI) | payer MEDICARE, BC, SELFPAY | END 2022-07-04 12:40 | disposition home or self-care (01) | LOC: RAD 12:41 | PROVIDERS: PCP Family Medicine; Visit Provider Internal Medicine | DX: I50.40 Unspecified combined systolic (congestive) and diastolic (congestive) heart failure (principal); I51.7 Cardiomegaly | CPT/HCPCS: 93306 ==

== ENCOUNTER 2022-09-29 15:31 | Outpatient (REF) | payer MEDICARE, BC, SELFPAY ==
[2022-09-29 16:16] LABS: Chloride* 100 mmol/L (96-114); Potassium* 4.6 mmol/L (3.6-5.1); Sodium* 136 mmol/L (135-149)
[2022-09-29 16:18] LABS: Creatinine* 0.9 mg/dL (0.5-1.5); Estimated Glomerular Filt Rate 64 ml/min
[2022-09-29 16:19] LABS: Blood Urea Nitrogen* 16 mg/dL (7-30); Carbon Dioxide* 30 mmol/L (20-32); Glucose* 90 mg/dL (60-115)
== END 2022-09-29 15:32 | disposition home or self-care (01) ==
LOC: NPINS 15:31
PROVIDERS: PCP Family Medicine; Visit Provider Family Medicine
DX: I50.22 Chronic systolic (congestive) heart failure (principal)
CPT/HCPCS: 80048

== ENCOUNTER 2023-06-03 09:51 | Outpatient (CLI) | payer MEDICARE, BC, SELFPAY | END 2023-06-03 09:52 | disposition home or self-care (01) | PROVIDERS: PCP Family Medicine; Visit Provider Family Medicine | DX: I10 Essential (primary) hypertension (principal); E78.5 Hyperlipidemia, unspecified; E04.1 Nontoxic single thyroid nodule | CPT/HCPCS: 80061; 86140 ==

== ENCOUNTER 2023-10-21 09:51 | Outpatient (CLI) | payer MEDICARE, BC, SELFPAY | END 2023-10-21 09:52 | disposition home or self-care (01) | LOC: LKVREF 09:52 | PROVIDERS: PCP Family Medicine; Visit Provider Family Medicine | DX: I10 Essential (primary) hypertension (principal) | CPT/HCPCS: 80048 ==

== ENCOUNTER 2023-12-16 14:14 | Outpatient (CLI) | payer MEDICARE, BC, SELFPAY ==
--- NOTE | 2023-12-16 14:30 | CRLHL7_ITS ---
For Patients: As a result of the Century Cures Act, medical imaging exams and procedure reports are released immediately into your electronic medical record. You may view this report before your referring provider. If you have questions, please contact your health care provider. Indication: Radiculopathy. Low back pain. Hip pain. Technique: T2, T1, and STIR sagittal as well as T1 and T2 axial sequences were obtained. No IV contrast. Comparison: X-ray 10/21/2023. Findings: Alignment is near anatomic. No evidence for recent fracture, worrisome bone lesion or pars defect. There are a few small chronic Schmorl`s node endplate indentations. There is moderate thecal sac effacement at L4-5, and mild thecal sac effacement at L3-4. No high grade central canal stenosis. The conus and cauda equina are unremarkable, with the tip of the cord at the L1 level. No paraspinal pathology is identified. Trace spurring along the left sacroiliac joint. T12-L1: The disc is negative. Minimal facet degenerative change. The foramina are patent. L1-2: Mild disc and facet degenerative changes with slight foraminal narrowing. L2-3: Mild disc and facet degenerative changes with low-grade foraminal narrowing. L3-4: Moderate disc and facet degenerative changes. Moderate narrowing of both neural foramina. L4-5: Moderately severe facet osteoarthritis. Moderate disc degeneration. Moderate effacement of the thecal sac. Moderate narrowing of the lateral recesses on both sides, with potential impingement on the L5 nerve root(s). Low-grade narrowing of both neural foramina. L5-S1: Moderately severe vacuum disc degeneration. Moderate facet osteoarthritis. Moderate foraminal narrowing. Impression: 1. At L4-5 there is severe facet osteoarthritis and moderate disc degeneration. This causes moderate effacement of the thecal sac and moderate narrowing of both subarticular recesses. 2. At L5-S1 there is moderately severe vacuum disc degeneration. 3. Low-grade spondylosis elsewhere. Dictated by Ezio Kline MD @ 12/18/2023 6:52:09 AM (Electronically Signed)
== END 2023-12-16 14:15 | disposition home or self-care (01) ==
LOC: MRI 14:16
PROVIDERS: PCP Family Medicine; Visit Provider Family Medicine
DX: M54.10 Radiculopathy, site unspecified (principal); M54.50 Low back pain, unspecified; M47.896 Other spondylosis, lumbar region; M51.37 Other intervertebral disc degeneration, lumbosacral region
CPT/HCPCS: 72148

== ENCOUNTER 2024-01-19 08:21 | Outpatient (CLI) | payer MEDICARE, BC, SELFPAY | END 2024-01-19 08:22 | disposition home or self-care (01) | LOC: INJ CL 08:24 | PROVIDERS: PCP Family Medicine; Visit Provider Family Medicine | DX: M54.16 Radiculopathy, lumbar region (principal); M51.36 Other intervertebral disc degeneration, lumbar region | CPT/HCPCS: 62323; J0702; Q9966 ==

== ENCOUNTER 2024-04-28 14:45 | Outpatient (RCR) | payer MEDICARE, BC, SELFPAY ==
--- NOTE | 2024-01-29 15:49 | PT.OPEX ---
[facility] Eval PT [facility] Outpatient Eval Start: 01/29/24 11:29 Freq: Status: Active Protocol: Document 01/29/24 11:30 CRP (Rec: 01/29/24 15:49 CRP [id number]) E-signed By Elian Rand PT Physical Therapy Outpatient Evaluation Insurance Information Recert Due Date 04/28/24 Insurance Name Medicare B Medical Diagnosis Lumbar spine DDD Referring MD Dr Marsh Subjective Subjective 3 months ago was doing a lot of bending and then the next morning had onset of pain posterior L hip and into the gluteals. Has had times of pain even down into her L quad . Putting any pressure through the leg walking and now needs a cane to take pressure off. Standing in one place will also aggravate her sxs. Walking with a grocery cart really helps. No numbness or tingling. Did have a similar event on R side that responded well going to chiropractor. Attempted chiropractor for this L sided pain but had not change. Stairs will increase her pain as well. Pt reports that sitting decreases her pain but then it is difficult to get going after she has been sitting. Pt reports that she has attempted knee to chest stretch but this has actually increased her pain. Had steroid injection 01-19-24. 30 years ago had lumbar discectomy/decompression Pain Comments 11/15 Current Work Status Retired Objective Other/Pertinent Objective Posture: decreased wt bearing on L in standing Trunk ROM: flex min dec, Seated flexion is painful at L PSIS, Ext coco decrease with L LBP, Bilat SB min dec, Bilat rot min dec Hip ROM: R WNL throughout. L hip flex painful into the lower lumbar spine at 100 deg, IR to neutral, ER to 40 degrees, going from hip flexion at 90 degrees to supine hip neutral pt has catching pain into ant hip MMT: unable to test L LE sec to pain Pts hip was showing high levels of irritability by this time and we moved on to working long axis distraction Assessment Assessment/Impression Pt presents to the clinic with signs and sxs that suggest lumbar spine DDD and resulting L LE radicular pain. With this, the pt shows underlying issues of L hip DJD and painful hypomobility that is most likely facilitating the primary lumbar spine issue. Skilled PT is necessary to incorporate ther ex, nm edmund, manual therapy and pt education to decrease pain and improve functional mobility. Primary Functional Limitations Going sit to stand Standing Walking Plan of Care Rehabilitation Potential Good Physical Therapy Goals 1. Pt will be independent with HEP in 8 weeks. 2. Pt will go sit to stand without pain in 8 weeks. 3. Pt will walk without a cane more than 20 min and 80% decrease in pain in 12 weeks. Coordination/Communication With Referral Source Treatment Plan/Direct Interventions Joint Mobilization,Manual Therapy,Neuromuscular Re-ed, Self-Care/Home Management, Therapeutic Activities, Therapeutic Exercises Frequency/Duration 1-2x/wk for 12 weeks Patient Will Be Discharged From Therapy Completion of LTG(s),Skills Plateau,Independent w/HEP, Independently Progressing Evaluation Billing Untimed Code Treatment Minutes 40 Complexity Moderate Certification Information Initial Certification Date 01/29/24 Ending Certification Date 04/28/24 Provider Signature Required Yes Provider Signature Shows Agreement With POC & Medical Necessity Physician NPI Number Write NPI# Here Physician Comment/Change : Physician Signature & Date Requested Please Sign/Date Here
== END 2024-08-10 15:36 | disposition home or self-care (01) ==
PROVIDERS: PCP Family Medicine; Visit Provider Orthopaedic Surgery Sports Medicine
DX: M47.816 Spondylosis without myelopathy or radiculopathy, lumbar region (principal); M51.36 Other intervertebral disc degeneration, lumbar region; M54.51 Vertebrogenic low back pain; M25.552 Pain in left hip; Z51.89 Encounter for other specified aftercare
CPT/HCPCS: 97012; 97110; 97140; 97162; 97530

== ENCOUNTER 2024-07-18 08:52 | Outpatient (CLI) | payer MEDICARE, BC, SELFPAY | END 2024-07-18 08:53 | disposition home or self-care (01) | PROVIDERS: PCP Family Medicine; Visit Provider Family Medicine | DX: I10 Essential (primary) hypertension (principal); E78.00 Pure hypercholesterolemia, unspecified; R53.83 Other fatigue; Z13.21 Encounter for screening for nutritional disorder | CPT/HCPCS: 80048; 80061; 82607; 84443 ==

== ENCOUNTER 2024-12-12 10:40 | Day surgery (SDC) | payer MEDICARE, BC, SELFPAY ==
[2024-12-12] VITALS (24 sets, daily range): BP systolic 96–167; BP diastolic 55–96; PULSE 57–73; RESP 12–16; TEMP 35.2–37.1; O2SAT 92–100; BMI 23.4
--- NOTE | 2024-12-12 11:11 | W.PM.H&PU ---
History & Physical Update History & Physical Update H&P Reviewed and patient assessed: No changes noted
[2024-12-12] MEDS: SODIUM CHLORIDE 0.9 % (FLUSH) 10 ML SYRINGE IVF (11:22)
[2024-12-12] MEDS: LACTATED RINGERS 1000 ML 1,000 ML 100 ML IV ×2 (11:25→13:23)
[2024-12-12] MEDS: ACETAMINOPHEN 500 MG TABLET 1000 MG PO ×3 (11:30→23:31)
[2024-12-12] MEDS: OXYCODONE (CR) 10 MG TAB.ER.12H PO (11:30)
[2024-12-12] MEDS: MIDAZOLAM HCL 1 MG/ML inj IVP (11:55)
--- NOTE | 2024-12-12 12:05 | SUR.PREOP ---
TIME?OUT:?1154 PT/RN/MDA?VERIFICATION?OF?SURGICAL?SITE,?PROCEDURE,?AND?CONSENT OBTAINED?PRIOR?TO?INVASIVE?PROCEDURE.
[2024-12-12] MEDS: TRANEXAMIC ACID 100 MG/ML INJ 1000 MG IV (12:28)
--- NOTE | 2024-12-12 12:30 | CRLHL7_ITS ---
For Patients: As a result of the Cures Act, medical imaging exams and procedure reports are released immediately into your electronic medical record. You may view this report before your referring provider. If you have questions, please contact your health care provider. Indication: Hip replacement surgery Technique: AP hip fluoroscopic image. Fluoroscopy time 35.2 seconds. Findings/Impression: Hardware from a left total hip arthroplasty is in satisfactory position. Dictated by Daniel Martinez MD @ 12/13/2024 11:15:38 AM (Electronically Signed)
--- NOTE | 2024-12-12 14:09 | PM.ORPRC ---
Procedure Note Date of procedure: 12/12/24 Procedure: PREOPERATIVE DIAGNOSIS: 1. Left hip osteoarthritis, severe, primary POSTOPERATIVE DIAGNOSIS: 1. Left hip osteoarthritis, severe, primary PROCEDURE: 1. Left total hip arthroplasty-anterior approach 2. 29567 - intraoperative fluoroscopy up to 1 hour. SURGEON: Stephon Marsh MD. CABIN CLEANING SUPERVISOR: KARAN Pope; Amina Manning RN FA - Of note, a skilled outpatient physical therapist assistant was critical for this case to aid in patient positioning, tissue retraction, limb manipulation/positioning, dislocation/relocation, patient safety, and closure. ANESTHESIA: General endotracheal anesthetic EBL: 500ml IMPLANTS: DePuy J[employer]J uncemented total hip [place] cup size 52, hole eliminator, +4 neutral liner Actis stem, high offset, size 7 +1.5 mm ceramic 36 mm head. COMPLICATIONS: None evident INDICATIONS: The patient is a pleasant 84-year-old female who has experienced severe left hip pain and difficulty bearing weight. Workup included x-rays which revealed severe osteoarthrosis in the hip. Given the deformity, the dysfunction, and the pain, as well as the failure of nonoperative management, recommendation was made for surgery. FINDINGS: Full-thickness chondral loss diffusely throughout the femoral head and acetabulum. Osteophytes around the femoral head/neck junction as well as acetabulum. A large loose body encountered inferior acetabular region that was removed. DESCRIPTION OF PROCEDURE: Following a thorough discussion of risks, benefits, and alternatives consent was obtained and the left hip was marked. The patient was brought to the operating room and placed supine on the operating table. Induction of anesthesia was undertaken. 1 g IV Ancef and 1 g tranexamic acid was administered within 1 hr of incision preoperatively. Proper time-out was performed identifying proper patient, site, procedure. The operative extremity was prepped and draped in the appropriate sterile fashion using ChloraPrep after the patient was positioned on the [place] table with head in neutral alignment and all bony prominences well padded. C-arm fluoroscopic imaging was utilized to confirm proper pelvis rotation and position, and to get true AP films of both the contralateral left, and the affected left hip. This is for comparison. A longitudinal incision was made starting approximately 1 cm distal to the ASIS, and 3-4 cm lateral. The incision was extended distally aiming toward the lateral border the patella. Sharp incision through skin and bovie cautery through the subcutaneous tissue allowed identification of the TFL fascia. This was sharply divided, and the fascia bluntly released from the muscle fibers as we dissected medial. Upon coming to the medial border, we were able to retract the TFL laterally, and penetrated the deeper fascia and identify the crossing circumflex vessels. These were ligated/cauterized. The rectus was elevated from the capsule, and retractors placed laterally and medially along the femoral neck to help with visualization of the capsule. We then performed an inverted T capsulotomy. The capsule was tagged for later repair. Retractors were placed inside the capsule. The femoral neck was visualized after releasing medially down to the lesser trochanter, along the saddle laterally, and up onto the acetabulum. The femoral neck cut was made in line with our preoperative templating. The head was removed in a single piece, and sized. We turned our attention to acetabular preparation. Initially, the labrum was resected from around the perimeter, the pulvinar was excised, allowing us to visualize the false wall. We started the reaming with a 43 mm reamer. This was medialized down to the true wall. We then enlarged our reamers sequentially up to one size less than the selected cup size. We trialed at the same size and found it to have an excellent fit. The selected cup was then opened, inserted, and impacted in line with the goal of 40-45? of abduction, and 20-25? of anteversion. This was confirmed on C-arm fluoroscopic imaging to be in the appropriate/goal position. Once the cup was placed we placed a hole eliminator and a liner consistent with preop planning. Attention was turned to the femoral preparation. The limb was extended, externally rotated, and adducted. The posteromedial capsule was released, as retractors were placed allowing excellent access to the proximal femur. Initially a binder and box builder was followed by canal finder followed by various broaches. We broached sequentially up to size noted above, found it to have excellent rotational control, and trialing various heads and necks, revealed that appropriate neck offset, and the above noted head size provided the greatest stability, and mu-ism of length, and offset. C-arm fluoroscopic imaging confirmed position of the stem, as well as leg lengths, which were compared with the pre procedure all fluoroscopic images. Trial implants were removed, the real femoral stem inserted, as was the ceramic head. After reducing, the leg was placed through range of motion and stability was confirmed anterior, posterior, and lateral. A 3 min Betadine soak was then performed, and thorough irrigation with normal saline followed. Closure of the capsule was performed with #1 PDS. Bleeding was confirmed to be controlled at this stage, and the TFL fascia was closed with #0 strata fix. Subcutaneous, and subcuticular closure was performed with 2-0 Vicryl and 4-0 Monocryl, respectively. Dressings were applied, and the patient was awoken from anesthesia and transferred the PACU in stable condition. A skilled outpatient physical therapist assistant was critical for this case to aid in patient positioning, tissue retraction, proximal femur exposure, limb manipulation/positioning, dislocation/relocation, patient safety, and closure. PLAN: 1. Weight bear as tolerated operative extremity. 2. 23 hr perioperative antibiotics. 3. Ice. 4. PT/OT consults for ambulation assistance/mobility education. 5. Social work consult for discharge planning. 6. DVT prophylaxis with at SCDs and Xarelto x5 days followed by aspirin for a total of 1 month.
--- NOTE | 2024-12-12 14:23 | CRLHL7_ITS ---
For Patients: As a result of the Century Cures Act, medical imaging exams and procedure reports are released immediately into your electronic medical record. You may view this report before your referring provider. If you have questions, please contact your health care provider. Indication: Postop Technique: AP hip centered pelvis and lateral view left hip Findings/Impression: Hardware from a left total hip arthroplasty is in satisfactory position. Bone alignment is normal. No sign of acute fracture. Postop changes are within normal limits. Dictated by Daniel Martinez MD @ 12/13/2024 11:32:01 AM (Electronically Signed)
--- NOTE | 2024-12-12 14:35 | P.ANES_ITS ---
Anesthesia Charges Start Date/Time Anesthesia Start Date: 12/12/24 Anesthesia Start Time: 12:12 Stop Date/Time Anesthesia Stop Date: 12/12/24 Anesthesia Stop Time: 14:33 Summary Extremes of Age - Over 70 or under 1: CITY ATTORNEY Coding CPT Codes CPT Codes: ANESTH HIP ARTHROPLASTY - 51344 ([id number]) P3 - PATIENT W/SEVERE SYS DISEASE, QK - HEAVY DUTY DIESEL MECHANIC 2-4 CNCRNT ANES PROC, QX - CITY ATTORNEY SVC W/ MD MED DIRECTION Additional Codes: Summary - Extremes of Age - Over 70 or under 1: CITY ATTORNEY ([id number])
--- NOTE | 2024-12-12 14:35 | W.ANESCHARGE ---
Anesthesia Charges Start Date/Time Anesthesia Start Date: 12/12/24 Anesthesia Start Time: 12:12 Stop Date/Time Anesthesia Stop Date: 12/12/24 Anesthesia Stop Time: 14:33 Summary Extremes of Age - Over 70 or under 1: SHIPYARD PAINTER APPRENTICE Coding CPT Codes CPT Codes: ANESTH HIP ARTHROPLASTY - 57153 ([id number]) P3 - PATIENT W/SEVERE SYS DISEASE, QK - BEHAVIORAL INSTRUCTOR 2-4 CNCRNT ANES PROC, QX - SHIPYARD PAINTER APPRENTICE SVC W/ MD MED DIRECTION Additional Codes: Summary - Extremes of Age - Over 70 or under 1: SHIPYARD PAINTER APPRENTICE ([id number])
--- NOTE | 2024-12-12 15:12 | P.ANES_ITS ---
Anesthesia Charges Start Date/Time Anesthesia Start Date: 12/12/24 Anesthesia Start Time: 12:12 Stop Date/Time Anesthesia Stop Date: 12/12/24 Anesthesia Stop Time: 14:33 Summary Extremes of Age - Over 70 or under 1: MDA Coding CPT Codes CPT Codes: ANESTH HIP ARTHROPLASTY - 26052 ([id number]) QX - REMOTE SENSING ANALYST SVC W/ MD MED DIRECTION, QK - DRUM CARRIER 2-4 CNCRNT ANES PROC, P3 - PATIENT W/SEVERE SYS DISEASE Additional Codes: Summary - Extremes of Age - Over 70 or under 1: MDA ([id number])
--- NOTE | 2024-12-12 15:13 | W.PM.NB ---
Nerve Block Nerve Block Time Seen by Provider: 11:58 Date Seen: 12/12/24 Type of block requested by surgeon for post-operative analgesia: JANE/LFCN Side: left Time out performed: Yes Verification of patient name: Yes Verification of date of : Yes Site marking: site marked Name of person performing procedure: Vaughn Continuous monitoring Was continuous monitoring of O2 sat, B/P, phototypesetting equipment monitor, recorded every 15 minutes?: Yes Procedure Checklist: sterile prep, needles and gloves Ultrasound guided. Images saved: Yes Medications given in 5ml increments after negative aspiration: Ropivicaine %: 0.5 mL: 30 Needle gauge: 20 Precedex (mcg): 25 Patient tolerated procedure well: Yes Additional comments: Needle noted below psoas tendon needle noted adjacent to LFCN Block Charges Block Charge (with Pro Fee): Other Periph Nerve Block Use of Ultrasound Machine for Block: Yes- US Guidance/pain block
[2024-12-12] MEDS: LACTATED RINGERS 1000 ML 1,000 ML 75 ML IV (16:09)
--- NOTE | 2024-12-12 16:49 | PM.IMCN1 ---
Date of Consult Consult date: 12/12/24 Requesting Physician: Orthopedics Primary Care Provider: Fredi Fermin MD Consult Narrative Reason for consult: HTN, COPD, pulmonary fibrosis, CHF, PVD Narrative: Belinda Yost is a 84 year old female who underwent elective left total hip arthroplasty today by Dr. Marsh for osteoarthritis. No complications. Two of her children are in the room with her. She is doing well and has no complaints. Review of Systems Status of ROS: Reports: 6 or more systems reviewed and unremarkable except as noted in History and below [facility] Medical History (Updated 12/12/24 @ 20:07 by Kendra Mercedes MD) Left bundle branch block ?I44.7 - Left bundle-branch block, unspecified (ICD-10) Hypertension ?I10 - Essential (primary) hypertension (ICD-10) Hyperlipidemia ?E78.5 - Hyperlipidemia, unspecified (ICD-10) Bronchiectasis ?J47.9 - Bronchiectasis, uncomplicated (ICD-10) Chronic obstructive pulmonary disease ?J44.9 - Chronic obstructive pulmonary disease, unspecified (ICD-10) Fibrosis of lung ?J84.10 - Pulmonary fibrosis, unspecified (ICD-10) Combined systolic and diastolic heart failure ?I50.40 - Unspecified combined systolic (congestive) and diastolic (congestive) heart failure (ICD-10) Thyroid nodule (10/08/11) ?E04.1 - Nontoxic single thyroid nodule (ICD-10) Peripheral vascular disease (10/08/11) ?I73.9 - Peripheral vascular disease, unspecified (ICD-10) Lumbar degenerative disc disease ?M51.36 - Other intervertebral disc degeneration, lumbar region (ICD-10) Osteoarthritis of left hip ?M16.12 - Unilateral primary osteoarthritis, left hip (ICD-10) Radicular pain of left lower extremity ?M54.10 - Radiculopathy, site unspecified (ICD-10) Chronic back pain ?M54.9 - Dorsalgia, unspecified (ICD-10) ?G89.29 - Other chronic pain (ICD-10) Closed fracture of left proximal humerus ?S42.202A - Unspecified fracture of upper end of left humerus, initial encounter for closed fracture (ICD-10) Colon polyp (09/12/09) ?K63.5 - Polyp of colon (ICD-10) Acute respiratory failure with hypoxia ?J96.01 - Acute respiratory failure with hypoxia (ICD-10) Surgical History (Updated 12/12/24 @ 20:06 by Kendra Mercedes MD) Status post hysterectomy ?Z90.710 - Acquired absence of both cervix and uterus (ICD-10) Status post lumbar laminectomy (1985) ?Z98.890 - Other specified postprocedural states (ICD-10) Status post tonsillectomy and adenoidectomy (09/12/09) ?Z90.89 - Acquired absence of other organs (ICD-10) Status post appendectomy (09/12/09) ?Z90.49 - Acquired absence of other specified parts of digestive tract (ICD-10) Family History Mother Lung cancer Social History Narrative: former smoker age 14-20 years old. What is your current living situation?: I presently have a place to live Problems where you live: no known problems Problems where you live details: n/a In the past 12 months, utilities in danger of being shut off: no In past 12 months, lack of transportation kept you from medical appts, meetings, work, or getting things needed for daily living: no In the past 12 mos, have been you worried that your food would run out before you had money to buy more?: never true In the past 12 mos, the food you bought just didn't last and you didn't have money to buy more?: never true Highest level of school completed/degree received: high school graduate Smoking Status: Never smoker Do you use any of these nicotine containing products: None Second hand tobacco smoke exposure: No How often do you have a drink containing alcohol: monthly or less Alcohol type: beer and hard liquor How many standard drinks containing alcohol do you have on a typical day: 1 or 2 How often do you have six or more drinks on one occasion: Never AUDIT-C Alcohol total score: 1 Non-prescribed substance use: denies use Caffeine: No How often does anyone, including family, friends and others, physically hurt you: never How often does anyone, including family, friends and others, insult or talk down to you: never How often does anyone, including family, friends and others, threaten you with harm: never How often does anyone, including family, friends and others, scream or curse at you: never service: No Meds Home Medications and Allergies Home Medications ?Medication ?Instructions ?Recorded ?Confirmed ?Type multivitamin (Daily Multi-Vitamin 1 tab PO QDAY 06/13/22 12/05/24 History tablet) acetaminophen 650 mg 650 mg PO Q12H PRN 12/29/23 12/05/24 History tablet,extended release (Tylenol Arthritis Pain) metoprolol succinate 50 mg 50 mg PO DAILY #90 tabs 07/18/24 12/12/24 Rx tablet,extended release 24 hr Allergies Allergy/AdvReac Type Severity Reaction Status Date / Time oxycodone AdvReac Mild Dizziness Verified 12/05/24 10:10 Exam Narrative: Exam Narrative: General: No acute distress. Awake alert oriented x3. Sitting in the bedside chair. HEENT: Normocephalic atraumatic, pupils equally round and reactive to light and accommodation. Oropharynx clear. Mucous membranes are moist. Cardiovascular: Regular rate and rhythm. No murmurs, gallops, or rubs. Chest: No increased work of breathing. Clear to auscultation bilaterally. No crackles or wheezes. Abdomen: Bowel sounds present. Soft, nondistended, nontender. No hepatosplenomegaly or masses. Extremities: Left hip bandage is clean, dry, and intact. No edema, no cyanosis or clubbing. Skin: No jaundice, no pallor, no rashes on visible skin. Const: Vital Signs, click to edit/add: Vital Signs - 24 hr 12/12/24 11:28 12/12/24 11:55 12/12/24 12:00 Temperature 98.7 F Pulse Rate 73 72 66 Respiratory Rate 16 16 16 Blood Pressure 163/93 H 159/85 H 154/91 H Pulse Oximetry 98 97 99 Oxygen Delivery Me thod Room Air Nasal Cannula Nasal Cannula Oxygen Flow Rate 1 2 12/12/24 12:07 12/12/24 14:30 12/12/24 14:35 Temperature 97.4 F L Pulse Rate 60 65 62 Respiratory Rate 16 12 12 Blood Pressure 138/75 157/90 H 153/82 H Pulse Oximetry 98 98 98 Oxygen Delivery Me thod Nasal Cannula Room Air Room Air Oxygen Flow Rate 2 12/12/24 14:40 12/12/24 14:45 12/12/24 14:50 Temperature Pulse Rate 61 60 60 Respiratory Rate 12 12 12 Blood Pressure 139/76 143/75 H 143/79 H Pulse Oximetry 92 99 100 Oxygen Delivery Me thod Nasal Cannula Nasal Cannula Nasal Cannula Oxygen Flow Rate 2 2 2 12/12/24 14:55 12/12/24 15:00 12/12/24 15:11 Temperature 97.1 F L 96.4 F L Pulse Rate 58 L 57 L 60 Respiratory Rate 12 12 12 Blood Pressure 151/80 H 160/78 H 167/82 H Pulse Oximetry 100 100 99 Oxygen Delivery Me thod Nasal Cannula Nasal Cannula Room Air Oxygen Flow Rate 2 2 12/12/24 15:30 Temperature 96.0 F L Pulse Rate 57 L Respiratory Rate 12 Blood Pressure 165/75 H Pulse Oximetry 99 Oxygen Delivery Me thod Room Air Oxygen Flow Rate 2 Assessment and Plan Assessment and plan (1) Status post left hip replacement: Problem comment: - 12/12/24 Dr. Marsh - Routine post op cares - VTE prophylaxis with 5 days of low dose rivaroxaban, then BID baby aspirin. Status: Acute (2) Osteoarthritis of left hip: Problem comment: moderate Status: Chronic (3) Hypertension: Problem comment: Mild hypotension tonight, already resolved. Will hold metoprolol tomorrow. Can restart it upon discharge. Status: Chronic (4) Hyperlipidemia: Problem comment: diet controlled Status: Chronic (5) Chronic obstructive pulmonary disease: Problem comment: No SOB or hypoxia at present Status: Chronic (6) Bronchiectasis: Problem comment: Has Oscillating Device, Aerobika Status: Chronic (7) Combined systolic and diastolic heart failure: Problem comment: EF 40% last Echo, 02/06/23 Echo 07/02 w EF 50-55% per cardiology note Stable, not in exacerbation. Status: Chronic (8) Fibrosis of lung: Problem comment: No SOB or hypoxia at present Status: Chronic
[2024-12-12] MEDS: CEFAZOLIN 1 GM in 0.9 % SODIUM CHLORIDE Mini-bag 100 ML IVPB (17:58)
[2024-12-12] MEDS: SENNOSIDES 1 TAB TABLET 2 TAB PO (20:52)
--- NOTE | 2024-12-12 21:23 | PC.NURSE ---
Patient surgical admit for Left total Hip came to the floor at 1511. Patients pain managed with prn and scheduled medications. Patient ambulates with assist of one, gait belt, and walker. She has a patent PIV in her left forearm. She is tolerating a regular diet and continent of clear yellow urine.Dressing to hip is clean, dry, and intact. Patient utilizing active ice.
[2024-12-13 02:20] VITALS: BP 144/68; PULSE 62; RESP 16; TEMP 36.4; O2SAT 98
[2024-12-13] MEDS: CEFAZOLIN 1 GM in 0.9 % SODIUM CHLORIDE Mini-bag 100 ML IVPB (02:21)
[2024-12-13] MEDS: ACETAMINOPHEN 500 MG TABLET 1000 MG PO (05:45)
[2024-12-13] MEDS: LACTATED RINGERS 1000 ML 1,000 ML 75 ML IV (05:55)
--- NOTE | 2024-12-13 06:23 | PC.NURSE ---
Pt alert and oriented x3. Afebrile. Pt reports 3-5/10 pain in left hip, managed with Ice pack and scheduled medication. Pt?s left hip?dressing is CDI. Pt is up SBA with walker and gait belt, voiding and tolerating a regular diet. Pt denies passing gas yet.?
[2024-12-13 06:43] LABS: Hematocrit 31.3 % (33.0-51.0); Hemoglobin* 10.1 gm/dL (12.0-16.0); Immature Granulocytes Abs Auto 0.03 K/uL (0.00-0.30); Immature Granulocytes Pct Auto 0.4 %; Mean Corpuscular HGB Conc 32 gm/dL (32-36); Mean Corpuscular Hemoglobin 29 pg (26-34); Mean Corpuscular Volume 91 fL (80-100); RDW Coefficient of Variation % 13.0 % (11.5-15.5); Red Blood Count 3.46 m/uL (4.00-5.20); White Blood Count* 8.52 K/uL (4.50-11.00)
[2024-12-13 06:54] LABS: Lymphocytes Absolute Auto 1.20 K/uL (0.90-2.90); Slide Review Reflex No
[2024-12-13 06:55] LABS: Potassium* 4.6 mmol/L (3.6-5.1); Sodium* 126 mmol/L (135-149)
[2024-12-13 06:58] LABS: Blood Urea Nitrogen* 14 mg/dL (7-30); Creatinine* 0.7 mg/dL (0.5-1.5); Est. Creatinine Clearance* 43.00; Estimated Glomerular Filt Rate 86 ml/min
--- NOTE | 2024-12-13 07:54 | PC.SOCIAL ---
Discharge planning: SW met with patient to determine if there are any needs/support that patient may have when discharging. Patient reports that she has her kids coming to stay with her so she isn't alone. Patient states that she has everything taken care of and has no concerns or needs at this time. SW to assist if needs arise.
[2024-12-13 08:02] VITALS: BP 113/64; PULSE 75; RESP 14; TEMP 36.6; O2SAT 98
[2024-12-13] MEDS: RIVAROXABAN 10 MG TABLET PO (08:15)
[2024-12-13] MEDS: SENNOSIDES 1 TAB TABLET 2 TAB PO (08:15)
--- NOTE | 2024-12-13 09:12 | PM.ORPN ---
Subjective Subjective Time Seen by Provider: 07:45 Date Seen: 12/13/24 Principal diagnosis: Day 1 s/p left YANNI Interval history: Belinda is doing well this morning and is resting comfortably in her recliner. She reports trouble sleeping last night due to left hip pain. At rest, in her recliner, she reports the pain is minimal and well managed with current scheduled and PRN oral pain medications and ice. Denies: postop chest pain, SOB, fever, chills, nausea, vomiting, numbness and tingling distally. Patient has not yet had a bowel movement. No acute concerns. Ortho Exam Narrative Exam Narrative: Incision/Dressing: Dressing appears clean and dry. No drainage present. Mepilex intact. Left hip appears moderately swollen but supple with no obvious erythema, fluctuance or excessive warmth. There is 2-3cm area of dried blood present on the Mepilex. No ecchymosis or erythematous streaking. Warmth around the wound is appropriate. Ice is being utilized as needed. CMS: Intact distally with 2+ Dorsalis pedis and Posterior Tibial pulses. 5/5 motor strength dorsal and plantar flexion. Confirmed sensation distally. Unable to perform straight leg raise. Calf: Bilateral calves are supple, with no swelling, pain, tenderness, erythema, discoloration or coolness to the touch. Constitutional: Patient is alert and oriented x3. Patient is in no acute distress and converses without labored breathing. Patient is able to make decisions and demonstrates good insight. Patient is pleasant and cooperative. Affect is full range and appropriate for the circumstances. Const Vital Signs, click to edit/add: Vital Signs - 24 hr 12/12/24 11:28 12/12/24 11:55 12/12/24 12:00 Temperature 98.7 F Pulse Rate 73 72 66 Pulse Rate [Left Pulse Oximeter] Respiratory Rate 16 16 16 Blood Pressure 163/93 H 159/85 H 154/91 H Blood Pressure [Right Arm] Pulse Oximetry 98 97 99 Oxygen Delivery Method Room Air Nasal Cannula Nasal Cannula Oxygen Flow Rate 1 2 12/12/24 12:07 12/12/24 14:30 12/12/24 14:35 Temperature 97.4 F L Pulse Rate 60 65 62 Pulse Rate [Left Pulse Oximeter] Respiratory Rate 16 12 12 Blood Pressure 138/75 157/90 H 153/82 H Blood Pressure [Right Arm] Pulse Oximetry 98 98 98 Oxygen Delivery Method Nasal Cannula Room Air Room Air Oxygen Flow Rate 2 12/12/24 14:40 12/12/24 14:45 12/12/24 14:50 Temperature Pulse Rate 61 60 60 Pulse Rate [Left Pulse Oximeter] Respiratory Rate 12 12 12 Blood Pressure 139/76 143/75 H 143/79 H Blood Pressure [Right Arm] Pulse Oximetry 92 99 100 Oxygen Delivery Method Nasal Cannula Nasal Cannula Nasal Cannula Oxygen Flow Rate 2 2 2 12/12/24 14:55 12/12/24 15:00 12/12/24 15:11 Temperature 97.1 F L 96.4 F L Pulse Rate 58 L 57 L 60 Pulse Rate [Left Pulse Oximeter] Respiratory Rate 12 12 12 Blood Pressure 151/80 H 160/78 H 167/82 H Blood Pressure [Right Arm] Pulse Oximetry 100 100 99 Oxygen Delivery Method Nasal Cannula Nasal Cannula Room Air Oxygen Flow Rate 2 2 12/12/24 15:30 12/12/24 15:51 12/12/24 16:00 Temperature 96.0 F L 95.4 F L 95.7 F L Pulse Rate 57 L 57 L 57 L Pulse Rate [Left Pulse Oximeter] Respiratory Rate 12 12 12 Blood Pressure 165/75 H 160/84 H 158/78 H Blood Pressure [Right Arm] Pulse Oximetry 99 99 99 Oxygen Delivery Method Room Air Room Air Oxygen Flow Rate 2 2 12/12/24 16:15 12/12/24 16:45 12/12/24 16:53 Temperature 95.7 F L 96.0 F L Pulse Rate 57 L 57 L Pulse Rate [Left Pulse Oximeter] Respiratory Rate 12 12 14 Blood Pressure 149/96 H 131/82 Blood Pressure [Right Arm] Pulse Oximetry 99 99 99 Oxygen Delivery Method Room Air Room Air Room Air Oxygen Flow Rate 2 2 2 12/12/24 17:15 12/12/24 18:09 12/12/24 19:15 Temperature 96.0 F L 97.1 F L 97.2 F L Pulse Rate 57 L 61 Pulse Rate [Left Pulse Oximeter] 60 Respiratory Rate 12 14 14 Blood Pressure 131/83 96/55 L Blood Pressure [Right Arm] 116/72 Pulse Oximetry 99 99 97 Oxygen Delivery Method Room Air Room Air Room Air Oxygen Flow Rate 2 2 12/12/24 19:19 12/12/24 20:51 12/12/24 23:30 Temperature 97.2 F L 97.2 F L Pulse Rate 60 62 Pulse Rate [Left Pulse Oximeter] Respiratory Rate 14 14 16 Blood Pressure 116/72 143/73 H Blood Pressure [Right Arm] Pulse Oximetry 97 97 99 Oxygen Delivery Method Room Air Room Air Room Air Oxygen Flow Rate 2 2 12/12/24 23:30 12/13/24 02:20 12/13/24 08:02 Temperature 97.6 F 97.6 F 98 F Pulse Rate Pulse Rate [Left Pulse Oximeter] 60 62 75 Respiratory Rate 16 16 14 Blood Pressure Blood Pressure [Right Arm] 141/70 H 144/68 H 113/64 Pulse Oximetry 99 98 98 Oxygen Delivery Method Room Air Room Air Room Air Oxygen Flow Rate 12/13/24 08:02 12/13/24 08:02 Temperature Pulse Rate Pulse Rate [Left Pulse Oximeter] 75 Respiratory Rate 14 14 Blood Pressure Blood Pressure [Right Arm] Pulse Oximetry 98 Oxygen Delivery Method Room Air Oxygen Flow Rate Assessment and Plan Assessment and plan (1) Status post left hip replacement: Problem details: - 12/12/24 Dr. Marsh Status: Acute Assessment and Plan: - Complete 23 hour perioperative antibiotics. - PT/OT consults for education and assistance. - Weight bear as tolerated with a walker for assistance. - Prescribed analgesics as needed. Patient is content with current narcotic medications. Minimize narcotic pain medication use; wean off and discontinue as soon as possible. - DVT prophylaxis: Xarelto 10 mg once daily x 5 days followed by aspirin 81 mg BID x 25 days. Also, frequent ambulation and ankle pumps when sedentary. - Social consult for discharge planning. - Anticipate patient will be discharged to home later today if the patient remains medically stable, pain is controlled and is safe with ambulation. - Follow-up with Alexandre Anderson PA-C on 12/20/24. - Follow-up with Dr. Marsh at 6 weeks postop. - Phone Orthopedics with any questions or concerns. [phone]
--- NOTE | 2024-12-13 10:29 | PC.NURSE ---
Discharge: Patient pleasant and cooperative. Patient vitally stable, lungs clear, BS WNL, IV removed, catheter intact. Patient rated pain 6/10, oxy 10 mg given once. Patient left hip dressing with small amount of old bloody drainage. Patient is 1 assist/walker/gb. Patient tolerating regular diet, urinating well, NO BM. Patient signed belongings sheet and discharge from. Questions patient's daughter had were answered. Patient left the floor by wheelchair to home with belongings and daughter at 1025.
== END 2024-12-13 10:25 | disposition home or self-care (01) ==
LOC: OR 10:42 → MEDSURG 10:42
PROVIDERS: PCP Family Medicine; Visit Provider Orthopaedic Surgery Sports Medicine
PROC: (CPT 27130; principal; 2024-12-12 12:30)
DX: M16.12 Unilateral primary osteoarthritis, left hip (principal); G89.18 Other acute postprocedural pain; J84.10 Pulmonary fibrosis, unspecified; J47.9 Bronchiectasis, uncomplicated; J44.9 Chronic obstructive pulmonary disease, unspecified; I11.0 Hypertensive heart disease with heart failure; I50.42 Chronic combined systolic (congestive) and diastolic (congestive) heart failure; I44.7 Left bundle-branch block, unspecified; I73.9 Peripheral vascular disease, unspecified; E78.5 Hyperlipidemia, unspecified
CPT/HCPCS: 27130; 01214; 36415; 64450; 73501; 76000; 76942; 82565; 84132; 84295; 84520; 85025; 86850; 86900; 86901; 97110; 97116; 97162; 97165; 97535; 99100; A9270; C1776; J0690; J1100; J2250; J2371; J2405; J2704; J2795; J3010; J3475; J3490; J7030; J7120

== ENCOUNTER 2025-01-18 11:15 | Outpatient (RCR) | payer MEDICARE, BC, SELFPAY ==
--- NOTE | 2024-12-21 12:11 | PT.OPEX ---
PT [place] Outpatient Eval PT [facility] Outpatient Eval Start: 12/20/24 16:26 Freq: Status: Active Protocol: Document 12/21/24 07:23 ELIZABETH (Rec: 12/21/24 12:05 HLA [id number]) E-signed By Shanika Rendon, PT, DPT Physical Therapy Outpatient Evaluation Insurance Information Recert Due Date 03/20/25 Insurance Name Medicare B Medical Diagnosis L anterior YANNI Treating Diagnosis weakness, difficulty amb Referring MD Marsh Subjective Preferred Name Belinda Subjective Pt with pain, edema L LE. Doing her ex, up with walker in the home, cane on stairs. Going ok. Family is staying with her 29/12. Pt does not like the ice so she isn't using it. Finds her pain is 'ok.' Pain Comments L buttock pain, ant thigh to knee. Rates as mild. Taking oxycodone for pain 5 mg bedtime and then Tylenol and oxy 2.5 mg every 5-6 hours. Using ice, not too often, however as she feels sensitive to it. Date of Last 12/19/24 Physician Visit Date of Surgery (If 12/12/24 applicable) Current Work Status Retired Precautions Weight Bearing Weight Bear as Tolerated Status Therapy Limitations/ Not Limited Systems Review Objective Range of Motion B UEs WNL L hip 5-90 flex, abd 0-20, ER 0-15, IR 0-15 R hip 0-110 flex, abd 0-40, ER 0-45, IR 0-45 B knees 0-110, pain R knee at end range (OA), L 0-110 B ankles WNL Strength L hip 3+/5 R hip 5/5 L knee 4+/5 R knee 4+5 B ankles 5/5 Swelling L hip along incision, L ankle Palpation tender along L hip consistent with surgery. Incision healing, edema present prox > distal Balance & Gait Gait arrives amb with ww, flexed at hips, step to pattern, mod wt on UEs. Pt instructed in ww reciprocal gt pattern, lessening UE support, hip ext at stance, heel toe patterning. 200 feet x 2. Worked with cane 60 feet x 2, instructed in progression to cane and also in amb program for home up every1-2 hours during the day. Stairs step to cane + rail leads up with L and down with R due to R knee pain. Balance seated good static/dynamic standing fair + with walker static/dynamic Sensation/Reflexes intact to light touch Other/Pertinent Access Code: [email or web address] Objective URL: [email or web address] Date: 12/21/2024 Prepared by: Shanika Rendon Exercises - Seated Forward Bending - 2-3 x daily - 7 x weekly - 1 sets - 10 reps - 5 hold - Seated March - 2-3 x daily - 7 x weekly - 1 sets - 10 reps - 3-5 hold - Supine Lower Trunk Rotation - 2-3 x daily - 7 x weekly - 1 sets - 10 reps - 5 hold - Supine Hip Windshield Wipers - 2-3 x daily - 7 x weekly - 1 sets - 10 reps - 3-5 hold Functional Test LEFS 17.5%, Performed & Score Assessment Assessment/ 84 year old female with hx of OA L hip, HTN, Impression hyperlipidemia, COPD, lung fibrosis, heart failure, PVD , thyroid nodule, lumbar DDD and chronic LBP underwent L ant YANNI with Dr. Marsh 12/12/24. Pt at baseline lives with her spouse in a 1 level home, 3 step entry with railing. She owns a cane and a ww. She is ind at baseline with amb, ADLs. Today, pt arrives with dtr's support. Pt is using a ww, step to gt pattern. Primary Functional impaired ROM L hip, impaired strength, impaired balance Limitations , impaired ambulation, pain L hip, impaired mobility. Plan of Care Rehabilitation Good Potential Physical Therapy Within 4-6 weeks Goals 1. Pt will amb level surfaces 20 min without an assistive device and no evidence of limp. 2. Pt will ascend/descend 13 stairs with railing reciprocally, safely and independently for household and community mobility. 3. Pt will demonstrate normal strength of surgical hip to prevent substitution of movement, prevent falls with mobility. 4. Pt will be independent in home ex program to promote strength and mobility and to prevent falls. Coordination/ Referral Source,Patient Caregiver,Employer,Facing Cutting Machine OperatorEntry Level Sales Consultant With ([employer]) Treatment Plan/ Gait Training,Joint Mobilization,Manual Therapy, Direct Interventions Neuromuscular Re-ed,Self-Care/Home Management, Therapeutic Activities,Therapeutic Exercises Frequency/Duration 1x/week x 4-6 weeks Patient Will Be Completion of LTG(s),Skills Plateau,Independent w/HEP, Discharged From Independently Progressing Therapy Evaluation Billing Untimed Code 15 Treatment Minutes PT Eval No Charge No Complexity Low Certification Information Initial 12/21/24 Certification Date Ending Certification 03/20/25 Date Provider Signature Yes Required Provider Signature POC & Medical Necessity Shows Agreement With Physician NPI Number Write NPI# Here Physician Comment/ : Change Physician Signature Please Sign/Date Here & Date Requested
== END 2025-01-18 13:51 | disposition home or self-care (01) ==
PROVIDERS: PCP Family Medicine; Visit Provider Orthopaedic Surgery Sports Medicine
DX: M25.562 Pain in left knee (principal); M79.652 Pain in left thigh; R60.0 Localized edema; Z96.642 Presence of left artificial hip joint; M54.59 Other low back pain; Z51.89 Encounter for other specified aftercare
CPT/HCPCS: 97110; 97112; 97116; 97140; 97161